=== PATIENT | female | born 1980 | race Caucasian/White ===

== ENCOUNTER 2021-07-29 10:02 | Inpatient (IN) | payer MEDICAID ==
[~2021-07-29] VITALS: Ht 152.4 cm; Wt 83.9 kg
--- NOTE | 2021-07-29 10:11 | NUR ---
TO ER BED 11. BIB SELF C/O R KNEE PAIN AND SWELLING X 7 DAYS. DENIES RECENT INJURY.
--- NOTE | 2021-07-29 10:30 | NUR ---
URINE COLLECTED AND SENT TO LAB
[2021-07-29] MEDS ORDERED: MORPHINE SULFATE INJ 2 MG/ML DISP.SYRIN IV ONE (11:00)
[2021-07-29] MEDS ORDERED: ONDANSETRON HCL/PF 4 MG/2 ML VIAL IVP ONE (11:00)
[2021-07-29] MEDS ORDERED: ONDANSETRON HCL/PF 4 MG/2 ML VIAL ONE (11:04)
[2021-07-29] MEDS ORDERED: MORPHINE SULFATE INJ 4 MG/ML DISP.SYRIN ONE (11:05)
--- NOTE | 2021-07-29 11:38 | NUR ---
US TECH AT BEDSIDE
[2021-07-29] MEDS ORDERED: RIVAROXABAN 15 MG TABLET PO SCH (12:30)
--- NOTE | 2021-07-29 12:59 | NUR ---
IMMIGRATION PARALEGAL AT BEDSIDE FOR BLOOD DRAW
[2021-07-29 13:25] LABS: CALCIUM, SERUM 8.1 mg/dL (8.5-10.1); CREATININE 0.8 mg/dL (0.6-1.3); POTASSIUM 3.6 mmol/L (3.5-5.1)
[2021-07-29] MEDS ORDERED: IOHEXOL-300 100 ML VIAL IV ONE (13:53)
--- NOTE | 2021-07-29 14:26 | NUR ---
COVID TEST COLLECTED AND SENT
[2021-07-29 15:12] LABS: BASOPHILS # (AUTO) 0.1 K/uL (0.0-0.2); BASOPHILS % (AUTO) 0.8 % (0.0-2.0); EOSINOPHILS % (AUTO) 3.1 % (0.0-6.0); HEMATOCRIT 37 % (33-45); HEMOGLOBIN 12.5 g/dL (11.5-14.8); LYMPHOCYTES # (AUTO) 2.2 K/uL (0.8-4.8); LYMPHOCYTES % (AUTO) 30.9 % (20.0-44.0); MEAN CORPUSCULAR HGB CONC 34 g/dl (31.0-36.0); MEAN CORPUSCULAR VOLUME 91 fL (82-100); MONOCYTES # (AUTO) 0.5 K/uL (0.1-1.30); MONOCYTES % (AUTO) 6.6 % (2.0-12.0); NEUTROPHILS # (AUTO) 4.2 K/uL (1.8-8.9); NEUTROPHILS % (AUTO) 58.6 % (43.0-81.0); PLATELET COUNT (AUTO) 313 K/uL (150-450); WHITE BLOOD COUNT (AUTO) 7.2 K/uL (4.3-11.0)
--- NOTE | 2021-07-29 15:28 | NUR ---
SUBMITTED MOVE PACKET AND CALLED NURSING SUP FOR BED
--- NOTE | 2021-07-29 15:32 | NUR ---
FOOD TRAY PROVIDED, TOLERATED WELL
[2021-07-29] MEDS ORDERED: MAGNESIUM HYDROXIDE 30 ML UDC PO PRN (16:30)
[2021-07-29] MEDS ORDERED: ACETAMINOPHEN 325 MG TABLET PO PRN (16:30)
[2021-07-29] MEDS ORDERED: HYDROCODONE/APAP 5/325MG TABLET PO PRN (16:30)
[2021-07-29] MEDS ORDERED: MAG HYDROX/AL HYDROX/SIMETH 30 ML UDC PO PRN (16:30)
[2021-07-29] MEDS ORDERED: ONDANSETRON HCL/PF 4 MG/2 ML VIAL IVP PRN (16:30)
--- NOTE | 2021-07-29 16:40 | NUR ---
REPORT GIVEN TO IZAIAH PERDOMO FOR SHANNON
[2021-07-29] MEDS ORDERED: MORPHINE SULFATE INJ 4 MG/ML DISP.SYRIN IV PRN (17:00)
[2021-07-29] MEDS ORDERED: Z GUARD REMEDY 4 OZ OINT TP PRN (17:00)
--- NOTE | 2021-07-29 17:06 | NUR ---
MS RN NOTES RECEIVED PATIENT VIA VANDAAN A/O X4. AMBULATORY. NO C/O PAIN AT THIS TIME. NO APPARENT DISTRESS NOTED. TOLERATING ROOM AIR WELL WITH SPO2 100%. VS TAKEN AND RECORDED. HAS LEFT AC AND LEFT HAND IV ACCESS #20G, PATENT AND INTACT. SKIN ASSESSMENT DONE. ADMITTING ORDERS RECEIVED. ROOM ORIENTATION PROVIDED. SAFETY MEASURES IN PLACE. CALL LIGHT WITHIN REACH.
--- NOTE | 2021-07-29 17:07 | NUR ---
PT TRANSPORTED TO MED SURG IN STABLE CONDITION.
[2021-07-29] MEDS: RIVAROXABAN 15 MG TABLET PO SCH (17:49)
[2021-07-29 18:00] VITALS: BP 112/76
[2021-07-29] MEDS: IV NS 0.9% 1,000 ML IV PRN (18:00)
--- NOTE | 2021-07-29 19:08 | NUR ---
RN NOTES: RECEIVED ASLEEP ON BED, A/OX4, ORIENTED TO UNIT AND STAFF, ON RA, NO SIGN OF RESPIRATORY DISTRESS OR ANY DISCOMFORT,IV CANNULA ON THE LAC G#20 AND LH G#20, NO IVF, CONTINENT B/B, SKIN IS INTACT, AMBULATE GOING TO THE BATHROOM, FALL,SAFETY AND ASPIRATION PRECAUTION OBSERVED, -BED LOW NAD LOCKED, KEPT CALL LIGHT WITHIN EASY REACH.
--- NOTE | 2021-07-29 19:18 | NUR ---
[employer] TECHNICIAN CLOSING NOTES PATIENT LYING IN BED, ASLEEP. RESPONSIVE TO VERBAL AND TACTILE STIMULI. A/O X4. NO APPARENT DISTRESS NOTED. NO SOB OR . NO C/O PAIN AT THIS TIME. NO BLEEDING NOTED. AMBULATORY, STEADY GAIT. HAS LEFT AC AND LEFT HAND IV ACCESS #20G WITH NS RUNNING AT 75 ML/HR. PATENT AND INTACT. RIGHT LOWER LEG ELEVATED WITH PILLOW. SAFETY PRECAUTIONS IN PLACED: BED LOW AND LOCKED, SIDE RAILS UP X2, CALL LIGHT WITHIN REACH.
[2021-07-29 20:00] VITALS: BP 110/73
[2021-07-29] MEDS ORDERED: TEMAZEPAM 15 MG CAPSULE PO PRN (22:00)
--- NOTE | 2021-07-30 03:17 | NUR ---
RN NOTES: ASLEEP MOST OF THE TIME, RN SAW HER AWAKE FOR FEW MINUTES ONLY, SHE SAID NO PAIN OR DISCOMFORT, SHE GO BACK TO SLEEP.
--- NOTE | 2021-07-30 06:59 | NUR ---
RN NOTES: MORNING CARE DONE, SHE WENT BACK TO SLEEP, CALLS AND NEEDS ATTENDED, NO PAIN, FOR LABS THIS MORNING, IVF OF NS AT 75 ML/HR ONGOING, ON PAIN MANAGEMENT, FOR CARLITO FOLLOW UP, ENDORSED FOR CONTINUITY OF CARE.
[2021-07-30] MEDS: PANTOPRAZOLE 40 MG TABLET.DR PO SCH (07:31)
--- NOTE | 2021-07-30 07:53 | NUR ---
MS RN OPENING NOTES PATIENT LYING IN BED, ASLEEP, RESPONSIVE TO VERBAL STIMULI TO A/O X4. TOLERATING WELL ON ROOM AIR WITH NO S/S OF RESPIRATORY DISTRESS. BREATHING EVEN AND UNLABORED WITH NO COMPLAINTS OF PAIN OR DISCOMFORT AT THIS TIME. PATIENT AMBULATORY WITH STEADY GAIT. LEFT HAND IV #20 G CLEAN, INTACT, AND FLUSHING WELL WITH NS @ 75 ML/HR. RIGHT LOWER LEG ELEVATED WITH PILLOW. SAFETY PRECAUTIONS IN PLACE: BED IN LOWEST LOCKED POSITION, SIDE RAILS UP X 2, CALL LIGHT WITHIN REACH. WILL CONTINUE TO MONITOR.
[2021-07-30 08:00] VITALS: BP 120/80
[2021-07-30 08:32] LABS: BASOPHILS % (AUTO) 0.5 % (0.0-2.0); EOSINOPHILS % (AUTO) 4.2 % (0.0-6.0); HEMATOCRIT 37 % (33-45); HEMOGLOBIN 12.7 g/dL (11.5-14.8); LYMPHOCYTES # (AUTO) 1.7 K/uL (0.8-4.8); LYMPHOCYTES % (AUTO) 26.6 % (20.0-44.0); MEAN CORPUSCULAR HGB CONC 34 g/dl (31.0-36.0); MEAN CORPUSCULAR VOLUME 92 fL (82-100); MONOCYTES # (AUTO) 0.5 K/uL (0.1-1.30); MONOCYTES % (AUTO) 7.2 % (2.0-12.0); NEUTROPHILS # (AUTO) 3.9 K/uL (1.8-8.9); NEUTROPHILS % (AUTO) 61.5 % (43.0-81.0); PLATELET COUNT (AUTO) 309 K/uL (150-450); RED BLOOD CELL COUNT(AUTO) 4.08 MIL/uL (4.0-5.2); WHITE BLOOD COUNT (AUTO) 6.3 K/uL (4.3-11.0)
[2021-07-30 08:59] LABS: CALCIUM, SERUM 7.9 mg/dL (8.5-10.1); CREATININE 0.8 mg/dL (0.6-1.3); MAGNESIUM 2.3 mg/dL (1.8-2.4); PHOSPHORUS 3.6 mg/dL (2.5-4.9)
[2021-07-30 09:11] LABS: THYROID STIMULATING HORMONE 1.477 uIU/mL (0.358-3.74)
[2021-07-30] MEDS: RIVAROXABAN 15 MG TABLET PO SCH ×2 (09:32→16:52)
[2021-07-30] MEDS: IV NS 0.9% 1,000 ML IV PRN (10:54)
[2021-07-30 16:00] VITALS: BP 113/60
--- NOTE | 2021-07-30 18:32 | NUR ---
MS RN CLOSING NOTES PATIENT LYING IN BED A/O X4. TOLERATING WELL ON ROOM AIR WITH NO S/S OF RESPIRATORY DISTRESS. BREATHING EVEN AND UNLABORED WITH NO COMPLAINTS OF PAIN OR DISCOMFORT AT THIS TIME. PATIENT AMBULATORY WITH STEADY GAIT. LEFT HAND IV #20 G CLEAN, INTACT, AND FLUSHING WELL WITH NS @ 75 ML/HR. RIGHT LOWER LEG ELEVATED WITH PILLOW. SAFETY PRECAUTIONS IN PLACE: BED IN LOWEST LOCKED POSITION, SIDE RAILS UP X 2, CALL LIGHT WITHIN REACH. 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
--- NOTE | 2021-07-30 19:30 | NUR ---
RN opening notes Pt is sitting in bed comfortably watching TV. Pt is alert and orientedX4. On room air. NO SOB. No S/S of distress noted. IV site at LAC# 20 is clean, intact, SL. L hand# 20 is clean, intact and infusing well NS@ 75 ml/hr. Pt is able to ambulated with a steady gait. Safety precautions is maintained. Bed at low position, brakes locked, side rails upX2, hob elevated and call light is within reach. Will continue to monitor.
[2021-07-30 20:00] VITALS: BP 108/67
[2021-07-30 20:20] VITALS: BP 108/67
[2021-07-31] MEDS: IV NS 0.9% 1,000 ML IV PRN (00:20)
--- NOTE | 2021-07-31 06:50 | NUR ---
RN closing notes Pt is resting in bed comfortably. Pt is alert and orientedX4. On room air. NO SOB. No S/S of distress noted. IV site at LAC# 20 is clean, intact, SL. L hand# 20 is clean, intact and infusing well NS@ 75 ml/hr. Kept Pt clean, dry and comfortable. All needs met and attended. Safety precautions is maintained. Bed at low position, brakes locked, side rails upX2, hob elevated and call light is within reach. Will endorse to am nurse for SHANNON.
--- NOTE | 2021-07-31 07:22 | NUR ---
RN OPENING NOTE PT IN BED, ASLEEP, EASILY AWAKENED A/O X4. TOLERATING WELL ON ROOM AIR WITH NO S/S OF RESPIRATORY DISTRESS. BREATHING EVEN AND NON-LABORED. NO COMPLAINTS OF PAIN. LEFT HAND IV #20 G CLEAN, INTACT WITH NS @ 75 ML/HR. RIGHT LOWER LEG ELEVATED WITH PILLOW. SAFETY PRECAUTIONS IN PLACE: BED IN LOWEST LOCKED POSITION, SIDE RAILS UP X 2, CALL LIGHT WITHIN REACH. WILL CONTINUE TO MONITOR / ASSIST
[2021-07-31 07:23] LABS: BASOPHILS % (AUTO) 0.4 % (0.0-2.0); EOSINOPHILS % (AUTO) 3.4 % (0.0-6.0); HEMATOCRIT 38 % (33-45); HEMOGLOBIN 12.8 g/dL (11.5-14.8); LYMPHOCYTES # (AUTO) 1.8 K/uL (0.8-4.8); LYMPHOCYTES % (AUTO) 21.7 % (20.0-44.0); MEAN CORPUSCULAR HGB CONC 34 g/dl (31.0-36.0); MEAN CORPUSCULAR VOLUME 92 fL (82-100); MONOCYTES # (AUTO) 0.5 K/uL (0.1-1.30); MONOCYTES % (AUTO) 6.3 % (2.0-12.0); NEUTROPHILS # (AUTO) 5.8 K/uL (1.8-8.9); NEUTROPHILS % (AUTO) 68.2 % (43.0-81.0); PLATELET COUNT (AUTO) 320 K/uL (150-450); RED BLOOD CELL COUNT(AUTO) 4.15 MIL/uL (4.0-5.2); WHITE BLOOD COUNT (AUTO) 8.5 K/uL (4.3-11.0)
[2021-07-31] MEDS: PANTOPRAZOLE 40 MG TABLET.DR PO SCH (07:41)
[2021-07-31 07:46] LABS: CALCIUM, SERUM 8.3 mg/dL (8.5-10.1); CREATININE 0.8 mg/dL (0.6-1.3); POTASSIUM 4.2 mmol/L (3.5-5.1)
[2021-07-31] MEDS ORDERED: HYDR-3972 PO (08:15)
[2021-07-31] MEDS ORDERED: TEMA30CA5 PO (08:15)
[2021-07-31 08:31] VITALS: BP 111/63
[2021-07-31] MEDS: RIVAROXABAN 15 MG TABLET PO SCH (09:09)
--- NOTE | 2021-07-31 11:00 | NUR ---
RN DC NOTE- PT DISCHARGED AT THIS [facility]. VS STABLE, AOX4, INTERACTIVE. POST DC INSTRUCTIONS GIVEN AND UNDERSTOOD. PRESCRIPTIONS CALLED IN AND F/U MD NUMBER PROVIDED FOR DR LUCIANO. PERIPHERAL IV SITES DC'D AND ID [id number] REMOVED. ESCORTED OFF UNIT BY THIS RN TO [employer]
[2021-08-02 23:06] LABS: *ANTITHROMBIN III AG 117 % (72-124); *THROMBIN TIME 15.5 sec (0.0-23.0); *dPT CONFIRM RATIO 0.82 Ratio (0.00-1.34); *dRVVT 81.4 sec (0.0-47.0)
== END 2021-07-31 11:30 | disposition home or self-care (01) | DRG 134 ==
LOC: ER 10:07 → TELE 16:33 → MED 17:18
PROVIDERS: ADMIT Nurse Practitioner Acute Care; ATTEND Nurse Practitioner Acute Care
DX: I26.99 Other pulmonary embolism without acute cor pulmonale (principal); I82.431 Acute embolism and thrombosis of right popliteal vein; F17.210 Nicotine dependence, cigarettes, uncomplicated; I10 Essential (primary) hypertension; E66.9 Obesity, unspecified; Z68.36 Body mass index [BMI] 36.0-36.9, adult; Z20.822 Contact with and (suspected) exposure to COVID-19; Z79.899 Other long term (current) drug therapy; F15.90 Other stimulant use, unspecified, uncomplicated; Z87.828 Personal history of other (healed) physical injury and trauma; Z91.81 History of falling
CPT/HCPCS: 36415; 71260-TC; 80048-TC; 81241; 83090; 83735-TC; 84100-TC; 84443-TC; 84703-TC; 85025-TC; 85300; 85301; 85303; 85613; 85670; 85705; 85732; 87081-TC; 93307-TC; 93971-TC; C9803; G0378; J2270; J2405; J7030; Q9967

== ENCOUNTER 2023-08-15 19:41 | Emergency (ER) | payer MEDICAID, OTHER ==
[~2023-08-15] VITALS: Ht 152.4 cm; Wt 89.8 kg
[~2023-08-15 19:41] MED LIST: HYDR-3972 PO; TEMA30CA5 PO
[2023-08-15 21:04] LABS: BASOPHILS % (AUTO) 0.1 % (0.0-2.0); EOSINOPHILS # (AUTO) 0.2 K/uL (0.0-0.7); EOSINOPHILS % (AUTO) 3.2 % (0.0-6.0); HEMATOCRIT 38 % (33-45); LYMPHOCYTES # (AUTO) 1.7 K/uL (0.8-4.8); LYMPHOCYTES % (AUTO) 21.7 % (20.0-44.0); MEAN CORPUSCULAR HEMOGLOBIN 32 PG (26.0-33.0); MEAN CORPUSCULAR HGB CONC 34 g/dl (31.0-36.0); MEAN CORPUSCULAR VOLUME 92 fL (82-100); MONOCYTES # (AUTO) 0.5 K/uL (0.1-1.30); MONOCYTES % (AUTO) 6.5 % (2.0-12.0); NEUTROPHILS # (AUTO) 5.3 K/uL (1.8-8.9); NEUTROPHILS % (AUTO) 68.5 % (43.0-81.0); PLATELET COUNT (AUTO) 307 K/uL (150-450); RED CELL DISTRIBUTION WIDTH 13.1 % (11.5-15.0); WHITE BLOOD COUNT (AUTO) 7.7 K/uL (4.3-11.0)
[2023-08-15 21:21] LABS: CALCIUM, SERUM 8.4 mg/dL (8.5-10.1); CARBON DIOXIDE 28 mmol/L (21-32); CHLORIDE 106 mmol/L (98-107); CREATININE 0.7 mg/dL (0.6-1.3); GLUCOSE 101 mg/dL (74-106); POTASSIUM 4.3 mmol/L (3.5-5.1); SODIUM SERUM 141 mmol/L (136-145); UREA NITROGEN, BLOOD 12 mg/dL (7-18)
[2023-08-15 21:33] LABS: D-DIMER 0.93 mg/L(FEU (0.17-0.50); INR 1.06 (0.91-1.10); NT-PRO BNP 32 pg/mL (0-125); PROTHROMBIN TIME 11.2 SECS (9.2-11.1)
[2023-08-15] MEDS ORDERED: CEPHALEXIN MONOHYDRATE 500 MG CAPSULE PO ONE (23:46)
[2023-08-15] MEDS ORDERED: KETOROLAC TROMETHAMINE 15 MG/ML VIAL ONE (23:46)
[2023-08-15] MEDS ORDERED: SULFAMETH/TRIMETH 800/160 MG 1 UDTAB TABLET ONE (23:47)
[2023-08-15] MEDS: KETOROLAC TROMETHAMINE 15 MG/ML VIAL IM ONE (23:48)
[2023-08-15] MEDS: CEPHALEXIN MONOHYDRATE 500 MG CAPSULE PO ONE (23:48)
[2023-08-15] MEDS: SULFAMETH/TRIMETH 800/160 MG 1 UDTAB TABLET PO ONE (23:48)
[2023-08-16] MEDS ORDERED: IBUP-1955 PO (00:21)
[2023-08-16] MEDS ORDERED: ACET-2605 PO (00:21)
[2023-08-16] MEDS ORDERED: CEPH500C2 PO (00:21)
[2023-08-16] MEDS ORDERED: SULF1TAB48 PO (00:21)
[2023-08-16 00:49] VITALS: BP 128/84; TEMP 98; O2SAT 100
== END 2023-08-16 00:59 | disposition home or self-care (01) ==
LOC: ER 19:42
DX: L03.116 Cellulitis of left lower limb (principal); L03.115 Cellulitis of right lower limb; M79.661 Pain in right lower leg; M79.662 Pain in left lower leg; Z86.718 Personal history of other venous thrombosis and embolism
CPT/HCPCS: 99285; 93970; 71045; 96372; 93005; 85025; 80048; 85378; 36415; 84484; 85730; 83880; J1885